=== PATIENT | female | born 1950 | race Caucasian/White ===

== ENCOUNTER 2020-06-27 15:28 | Outpatient (CLI) | payer MEDICARE, OTHER, SELFPAY | END 2020-06-27 15:29 | disposition home or self-care (01) | PROVIDERS: Visit Provider Nurse Practitioner Family | DX: N30.90 Cystitis, unspecified without hematuria (principal) | CPT/HCPCS: 87077; 87086; 87186 ==

== ENCOUNTER → 2020-07-08 12:31 | Outpatient (BNVA) | payer MEDICARE, OTHER, SELFPAY | PROVIDERS: Visit Provider Nurse Practitioner | DX: Z20.828 Contact with and (suspected) exposure to other viral communicable diseases (principal) | CPT/HCPCS: 87635 ==

== ENCOUNTER 2021-07-21 14:17 | Outpatient (CLI) | payer MEDICARE, OTHER, SELFPAY ==
--- NOTE | 2021-07-21 14:29 | USCV_ITS ---
Kenya Cagle Age: 71 Gender: F : 1950 Exam Date: 07/21/2021 15:02 Ordering Phys: Rush Naik MD Technologist: AUBRIE [place] [facility] [place]: Long hx of vascular intervention including aorta stenting, a LEFT FEM to RIGHT FEM bypass graft. A total of 5 prior RIGHT leg stents, which were recently removed and replaced with new ones. Risk Factors: care home smoker, quit 2010. No DM Previous Vascular Surgery: Long hx of vascular intervention including aorta stenting, a LEFT FEM to RIGHT FEM bypass graft. A Long hx of vascular intervention including aorta stenting, a LEFT FEM to RIGHT FEM bypass graft. A total of 5 prior RIGHT leg stents, which were recently removed and replaced with new ones. RIGHT LEFT BP: 183.0 / BP: 120.0/ 0 0 Waveform Velocity (cm/s) Velocity (cm/s) Waveform Biphasic 86.5 Iliac Prox N/A Iliac Mid 0.0 Monophasic 41.4 Iliac Distal Biphasic 223.2 [employer] P[employer]ATOR Biphasic 160.1 SFA Prox N/A 0.0 SFA Mid N/A 0.0 SFA Dist N/A POP 0.0 Monophasic 28.0 [employer] N/A 0.0 DPA 0.1 JOE FINDINGS Distal abdominal aorta was found to have diffuse ectasia and moderate diffuse plaque. Both common iliac arteries were found to be patent proximally based on color flow Doppler. Sluggish flow was detected in the right distal iliac artery. Sluggish flow was directed in the common femoral and proximal superficial femoral artery. No Doppler flow signals were obtained in the rest of the cerebral femoral artery , popliteal artery and dorsalis pedis arteries. Monophasic low velocity continuous waveforms were noted in the posterior tibial artery bilaterally. No Doppler flow signals were noted in the femorofemoral bypass graft CONCLUSIONS 1. 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 2. Features of very sluggish blood flow was detected in the right distal iliac, common femoral and proximal superficial femoral artery. The rest of the cervical femoral artery, popliteal artery and the dorsalis pedis arteries were found to be totally occluded with no spontaneous flow. Features suggestive of collateral filling of the posterior tibial artery on the right side. 3. Moderate diffuse plaque in the infrarenal aorta with some diffuse ectasia. 4. Flow signals were noted in the distal aorta, both common iliac arteries at the proximal segment. 5. Features of collateral filling of the posterior tibial artery on the left side with a total occlusion of the dorsalis pedis artery. 6. No previous studies available for comparison. Dr Mony Acevedo MD [facility] (Electronically Signed) Final Date: 24 July 2021 13:08 S
== END 2021-07-21 14:18 | disposition home or self-care (01) ==
LOC: RAD 14:22
PROVIDERS: Visit Provider Surgery
DX: I70.335 Atherosclerosis of unspecified type of bypass graft(s) of the right leg with ulceration of other part of foot (principal)
CPT/HCPCS: 93926

== ENCOUNTER 2021-11-17 12:41 | Outpatient (RCR) | payer MEDICARE, OTHER, SELFPAY | END 2021-12-05 23:59 | disposition home or self-care (01) | LOC: SPT 12:41 | PROVIDERS: Referring Provider Physical Medicine & Rehabilitation; Visit Provider Physical Medicine & Rehabilitation | DX: Z89.611 Acquired absence of right leg above knee (principal); G54.6 Phantom limb syndrome with pain | CPT/HCPCS: 97110; 97161 ==

== ENCOUNTER 2021-12-06 06:00 | Outpatient (RCR) | payer MEDICARE, OTHER, SELFPAY | END 2022-01-04 23:59 | disposition home or self-care (01) | LOC: SPT 06:00 | PROVIDERS: Referring Provider Physical Medicine & Rehabilitation; Visit Provider Physical Medicine & Rehabilitation | DX: R26.89 Other abnormalities of gait and mobility (principal) | CPT/HCPCS: 97110; 97116 ==

== ENCOUNTER 2022-01-05 06:00 | Outpatient (RCR) | payer MEDICARE, OTHER, SELFPAY | END 2022-02-04 23:59 | disposition home or self-care (01) | LOC: SPT 06:00 | PROVIDERS: Referring Provider Physical Medicine & Rehabilitation; Visit Provider Physical Medicine & Rehabilitation | DX: R26.89 Other abnormalities of gait and mobility (principal); Z89.511 Acquired absence of right leg below knee | CPT/HCPCS: 97116 ==

== ENCOUNTER 2022-02-05 06:00 | Outpatient (RCR) | payer MEDICARE, OTHER, SELFPAY | END 2022-03-07 23:59 | disposition home or self-care (01) | LOC: SPT 06:00 | PROVIDERS: Referring Provider Physical Medicine & Rehabilitation; Visit Provider Physical Medicine & Rehabilitation | DX: G54.7 Phantom limb syndrome without pain (principal); Z89.611 Acquired absence of right leg above knee | CPT/HCPCS: 97110 ==

== ENCOUNTER 2022-03-08 06:00 | Outpatient (RCR) | payer MEDICARE, OTHER, SELFPAY | END 2022-04-06 23:59 | disposition home or self-care (01) | LOC: SPT 06:00 | PROVIDERS: Visit Provider Physical Medicine & Rehabilitation | DX: R26.89 Other abnormalities of gait and mobility (principal) | CPT/HCPCS: 97110 ==

== ENCOUNTER 2022-04-07 06:00 | Outpatient (RCR) | payer MEDICARE, OTHER, SELFPAY | END 2022-05-07 23:59 | disposition home or self-care (01) | LOC: SPT 06:00 | PROVIDERS: Visit Provider Physical Medicine & Rehabilitation | DX: R26.89 Other abnormalities of gait and mobility (principal) | CPT/HCPCS: 97110 ==

== ENCOUNTER 2022-05-08 06:00 | Outpatient (RCR) | payer MEDICARE, OTHER, SELFPAY | END 2022-06-06 23:59 | disposition home or self-care (01) | LOC: SPT 06:00 | PROVIDERS: Visit Provider Physical Medicine & Rehabilitation | DX: R26.89 Other abnormalities of gait and mobility (principal) | CPT/HCPCS: 97110 ==

== ENCOUNTER 2022-06-07 06:00 | Outpatient (RCR) | payer MEDICARE, OTHER, SELFPAY | END 2022-07-07 23:59 | disposition home or self-care (01) | LOC: SPT 06:00 | PROVIDERS: Visit Provider Physical Medicine & Rehabilitation | DX: R26.89 Other abnormalities of gait and mobility (principal) | CPT/HCPCS: 97110 ==

== ENCOUNTER 2022-07-08 06:00 | Outpatient (RCR) | payer MEDICARE, OTHER, SELFPAY | END 2022-08-07 23:59 | disposition home or self-care (01) | LOC: SPT 06:00 | PROVIDERS: Visit Provider Physical Medicine & Rehabilitation | DX: R26.89 Other abnormalities of gait and mobility (principal) | CPT/HCPCS: 97110 ==

== ENCOUNTER 2022-08-08 06:00 | Outpatient (RCR) | payer MEDICARE, OTHER, SELFPAY | END 2022-09-04 23:59 | disposition home or self-care (01) | LOC: SPT 06:00 | PROVIDERS: Visit Provider Physical Medicine & Rehabilitation | DX: R26.89 Other abnormalities of gait and mobility (principal) | CPT/HCPCS: 97110 ==

== ENCOUNTER 2022-09-05 06:00 | Outpatient (RCR) | payer MEDICARE, OTHER, SELFPAY | END 2022-10-05 23:59 | disposition home or self-care (01) | LOC: SPT 06:00 | PROVIDERS: Visit Provider Physical Medicine & Rehabilitation | DX: G54.7 Phantom limb syndrome without pain (principal) | CPT/HCPCS: 97110 ==

== ENCOUNTER 2022-10-06 06:00 | Outpatient (RCR) | payer MEDICARE, OTHER, SELFPAY | END 2022-11-04 23:59 | disposition home or self-care (01) | LOC: SPT 06:00 | PROVIDERS: Visit Provider Physical Medicine & Rehabilitation | DX: R26.89 Other abnormalities of gait and mobility (principal); G54.7 Phantom limb syndrome without pain | CPT/HCPCS: 97110 ==